=== PATIENT | female | born 1950 | race Caucasian/White ===

== ENCOUNTER → 2022-01-14 09:22 | Outpatient (CLI) | payer OTHER, SELFPAY ==
--- NOTE | ~2022-01-14 | CT_ITS ---
EXAMINATION: CT diagnostic chest wo con EXAM DATE: 01/14/2022 10:02 INDICATION: Restrictive lung disease. TECHNIQUE: Spiral CT of the chest without contrast. Axial, coronal and sagittal images of the chest were reviewed. Coronal maximum intensity pixel images of chest reviewed. The dose-length product ( DLP) for this examination was 340.20 mGy-cm. The exposure was tailored according to patient size (au to mA exposure control), and iterative reconstruction (ASIR) was used as additional dose reduction te [place]. There is no prior study for comparison. FINDINGS: Small left, trace right pleural effusions. Tracheobronchial tree is patent. Mild react noreen mediastinal lymphadenopathy. There is no pneumothorax. Severe cardiomegaly. Cardiac pacemaker/ AICD device. Extensive mosaic attenuation most likely groundglass opacity which can be caused acutely by edema, in fection (viral pneumonia or PCP in immunocompromised patients), or hemorrhage. It can also be caused by chronic processes such as hypersensitivity pneumonitis, nonspecific interstitial pneumonitis (NSI P), cryptogenic organized pneumonia, desquamative interstitial pneumonitis(DIP). Within this airspace disease there is superimposed solid nodular density left lower lobe on image 71, could be granuloma, infectious, postinfectious although cancer not excludable, and for which a follo w-up CT in 3-6 months is recommended. There are sternotomy wires, and cardiac/coronary surgical shukla es. Correlate with prior history. Dense aortic valve calcifications raising possibility of aortic jenaro nosis. Upper abdomen is unremarkable. There is thoracic spondylosis without osteoblastic or osteoly tic lesions identified. IMPRESSION: 1. Cardiomegaly. Aortic valve calcifications which can be seen with aortic stenosis. 2. Extensive mosaic attenuation could be edema in setting of CHF. Please clinically correlate. Some other differential considerations above. 3. Left lower lobe 1 cm lung nodule; recommend 3-six-month follow-up noncontrast chest CT. Reviewed, dictated and finalized at location A. IMPRESSION: 1. Cardiomegaly. Aortic valve calcifications which can be seen with aortic jenaro nosis. 2. Extensive mosaic attenuation could be edema in setting of CHF. Please clini mena correlate. Some other differential considerations above. 3. Left lower lobe 1 cm lung nodule; recommend 3-six-month follow-up noncontra st chest CT.
== END ==
DX: M47.814 Spondylosis without myelopathy or radiculopathy, thoracic region (principal); J98.4 Other disorders of lung; M40.209 Unspecified kyphosis, site unspecified; I51.7 Cardiomegaly; R91.1 Solitary pulmonary nodule; I70.0 Atherosclerosis of aorta; Z95.0 Presence of cardiac pacemaker
CPT/HCPCS: 71250

== ENCOUNTER → 2022-01-31 09:54 | Outpatient (CLI) | payer OTHER, SELFPAY ==
--- NOTE | ~2022-01-31 | XR_ITS ---
EXAMINATION: XR knee LT min 4V DATE: 01/31/2022 11:20 INDICATION: Acute left knee pain. TECHNIQUE: 4 views of left knee including standing views were obtained. COMPARISON: None. FINDINGS: There is a total left knee arthroplasty with patellar resurfacing in near-anatomic alignmen t. No fracture. No periprosthetic lucency to suggest loosening or infection. There is no knee joint e ffusion. IMPRESSION: 1. Total left knee arthroplasty in near-anatomic alignment. Reviewed, dictated and finalized at location B.
== END ==
DX: M25.562 Pain in left knee (principal)
CPT/HCPCS: 73564

== ENCOUNTER 2022-02-17 19:12 | Emergency (ER) | payer OTHER, SELFPAY ==
[2022-02-17 19:21] VITALS: BP 93/42; PULSE 85; RESP 18; TEMP 36.1; O2SAT 99
[2022-02-17 19:40] LABS: Basophils Absolute Auto 0.1 K/mm3 (0.0-0.1); Basophils Percent Auto 0.8 % (0.2-1.2); Eosinophils Percent Auto 0.4 % (0-4.4); Hematocrit 34.2 % (37.0-47.0); Hemoglobin 8.8 g/dL (12.0-15.0); Immature Granulocyte Absolute 0.08 K/mm3 (0.00-0.031); Lymphocytes Absolute Auto 0.37 K/mm3 (0.9-3.2); Lymphocytes Percent Auto 4.8 % (18.3-44.2); Mean Corpuscular HGB Conc 25.7 g/dl (32-36); Mean Corpuscular Hemoglobin 19.5 pg (26-34); Mean Corpuscular Volume 75.8 fl (80-100); Mean Platelet Volume 9.3 fl (7.4-10.4); Monocytes Absolute Auto 0.6 K/mm3 (0.1-0.6); Monocytes Percent Auto 8.2 % (2.6-8.5); Neutrophils Absolute Auto 6.5 K/mm3 (1.3-6.7); Neutrophils Percent Auto 84.8 % (45.5-73.1); Nucleated Red Blood Cells Absolute Auto 0.1 K/mm3 (0.0-0.012); Platelet Count Result 292 k/mm3 (150-375); Red Blood Count 4.51 M/mm3 (4.2-5.4); Red Cell Distribution Width 21.6 % (11.5-14.5); White Blood Count 7.6 K/mm3 (4.5-10.0)
[2022-02-17 19:52] LABS: Alanine Aminotransferase 28 U/L (6-35); Albumin Level 3.2 g/dL (3.5-5.1); Alkaline Phosphatase 194 U/L (38-126); Anion Gap 10 mmol/L (8-16); Aspartate Amino Transferase 45 U/L (14-36); Bilirubin,Total 1.6 mg/dL (0.2-1.3); Blood Urea Nitrogen 61 mg/dL (7-17); Calcium 10.7 mg/dL (8.4-10.2); Carbon Dioxide 24 mmol/L (22-30); Chloride 97 mmol/L (98-107); Estimated CRCL calculation 27 ml/min; Estimated Glomerular Filt Rate 30; Glucose 220 mg/dL (65-110); Potassium 3.8 mmol/L (3.4-5.0); Sodium 131 mmol/L (137-145)
[2022-02-17 20:07] LABS: Platelet Estimate Adequate (Adequate)
[2022-02-17 20:08] LABS: Anisocytosis 3+ (NORMAL); Hypochromasia 1+ (NORMAL)
[2022-02-17 21:13] LABS: Prothrombin Time 50.8 Seconds (11.1-14.7)
[2022-02-17 21:17] LABS: INR 5.8
[2022-02-17 22:04] VITALS: BP 105/60; PULSE 84; RESP 17; O2SAT 98
--- NOTE | 2022-02-17 23:25 | ED.GENADULT ---
HPI - General Adult General Chief complaint: Recheck/Abnormal Lab/Rx Stated complaint: elevated INR Time Seen by Provider: 02/17/22 22:57 Source: patient, family and RN notes reviewed Mode of arrival: ambulatory History of Present Illness HPI narrative: 9-year-old female presented the emergency department for a recheck of her Coumadin level. Patient's INR was 9.8 earlier by an outside lab and patient was instructed to present to the emergency department for treatment. Upon arrival and on recheck it was down to 5.8. Patient denies any active bleeding. Patient denies any other complaints. Related Data Home Medications Medication Instructions Recorded Confirmed acetaminophen-codeine tablet 02/17/22 albuterol sulfate INHALATION 02/17/22 alendronate mg PO 02/17/22 aripiprazole mg 02/17/22 atorvastatin 02/17/22 carvedilol 02/17/22 dofetilide mcg 02/17/22 doxycycline hyclate 02/17/22 escitalopram oxalate mg 02/17/22 ferrous sulfate mg 02/17/22 fluoxetine mg 02/17/22 nortriptyline 02/17/22 omeprazole 02/17/22 torsemide mg 02/17/22 trazodone 02/17/22 warfarin 02/17/22 02/17/22 Allergies Allergy/AdvReac Type Severity Reaction Status Date / Time ciprofloxacin [From Cipro] Allergy Unknown Verified 02/17/22 22:06 enalaprilat [From Vasotec] Allergy Cough Verified 02/17/22 22:06 Review of Systems Review of Systems: CONSTITUTIONAL: Denies fever, chills, or sweats. EYES: Denies visual changes, redness, or discharge. ENT: Denies rhinorrhea, congestion, sore throat, or otalgia. CARDIOVASCULAR: Denies chest pain, palpitations, or edema. RESPIRATORY: Denies cough or dyspnea. GASTROINTESTINAL: Denies abdominal pain, nausea, vomiting, or diarrhea. GENITOURINARY: Denies dysuria or hematuria. SKIN: Denies rash or itching. MUSCULOSKELETAL: Denies back pain, joint pain, or myalgia. NEUROLOGIC: Denies headache, numbness, or weakness. PSYCHIATRIC: Denies anxiety or depression. All systems reviewed & are unremarkable except as noted in HPI and below Exam Narrative: APPEARANCE: Well appearing, no pain, no distress, well-nourished. HEAD: normocephalic, atraumatic. EYES: PERRLA/EOMI, conjunctivae clear. NOSE: Normal no drainage THROAT: Pharynx clear, no exudate. NECK: Supple. No adenopathy, no masses. RESPIRATORY: Airway patent, respirations nonlabored. Clear to auscultation bilaterally, no rales, rhonchi, wheezing. CARDIOVASCULAR: Regular rate and rhythm without murmurs rubs or gallops. ABDOMINAL: Soft, nontender, nondistended, normal bowel sounds MUSCULOSKELETAL: Moves all extremities. Strength/ROM intact, No edema, No calf tenderness. NEURO: Alert. Cranial nerves II through XII intact. Good gait. Good coordination SKIN: Warm, dry. Normal Color Course Course Emergency Course: Patient and family were updated on the results of the INR. Patient has no active bleeding. Patient was advised to hold her Coumadin in the morning and to call her primary care physician for further advice for holding her Coumadin. Patient was also advised on reasons to return to the emergency department. All questions and concerns were addressed. Vital Signs Vital signs: Vital Signs Temperature 97.0 F L 02/17/22 19:21 Pulse Rate 85 02/17/22 19:21 Respiratory Rate 18 02/17/22 19:21 Blood Pressure 93/42 L 02/17/22 19:21 Pulse Oximetry 99 02/17/22 19:21 Temperature 97.0 F L 02/17/22 19:21 Pulse Rate 84 02/17/22 22:04 Respiratory Rate 17 02/17/22 22:04 Blood Pressure 105/60 02/17/22 22:04 Pulse Oximetry 98 02/17/22 22:04 Medical Decision Making Vital Signs Vital Signs: Vital Signs Temperature 97.0 F L 02/17/22 19:21 Pulse Rate 85 02/17/22 19:21 Respiratory Rate 18 02/17/22 19:21 Blood Pressure 93/42 L 02/17/22 19:21 Pulse Oximetry 99 02/17/22 19:21 Temperature 97.0 F L 02/17/22 19:21 Pulse Rate 84 02/17/22 22:04 Respiratory Rate 17 02/17/22 22:04 Blood Pressure 105/60 05/
== END 2022-02-18 03:32 | disposition home or self-care (01) ==
PROVIDERS: Emergency Provider Emergency Medicine; PCP Student in an Organized Health Care Education/Training Program
DX: R79.1 Abnormal coagulation profile (principal); Z79.01 Long term (current) use of anticoagulants
CPT/HCPCS: 36415; 80053; 85025; 85610; 99283

== ENCOUNTER 2022-02-25 02:25 | Emergency (ER) | payer OTHER, SELFPAY ==
--- NOTE | ~2022-02-25 | XR_ITS ---
EXAMINATION: XR knee LT min 4V DATE: 02/25/2022 04:18 INDICATION: Abrasions at the left knee post fall TECHNIQUE: Anteroposterior, 2 oblique and crosstable lateral views of the left knee were obtained COMPARISON: 01/31/2022 FINDINGS: Left total knee arthroplasty with patellar resurfacing which appears well seated in near-anatomic ali gnment. No periprosthetic lucency to suggest loosening. No fracture. No left knee joint effusion. Sma ll amount of atherosclerotic calcific location along the popliteal artery. Soft tissues are otherwise unremarkable with no other radiopaque foreign bodies. IMPRESSION: 1. Expected appearance of a left total knee arthroplasty. No acute osseous abnormality or radiopaque foreign bodies. Reviewed, dictated and finalized at location A. IMPRESSION: 1. Expected appearance of a left total knee arthroplasty. No acute osseous abno rmality or radiopaque foreign bodies.
--- NOTE | ~2022-02-25 | XR_ITS ---
EXAMINATION: XR shoulder LT min 2V DATE: 02/25/2022 04:18 INDICATION: Left shoulder pain post fall TECHNIQUE: AP internally and externally rotated, AP oblique externally rotated and transscapular Y vi ews of the left shoulder were obtained. COMPARISON: None FINDINGS: Normal alignment. No fracture. Glenohumeral and acromioclavicular joint spaces are normal. Cardiac p acemaker with 3 leads projecting over the left upper chest. There are a couple linear lucencies proje cting across one of the cardiac catheter leads present concern for possible discontinuity. Soft tissu es are unremarkable. IMPRESSION: 1. No acute osseous abnormality at the left shoulder. 2. Suggestion of a possible discontinuity of one of the leads of a 3-lead cardiac pacemaker either of the lead or surrounding insulation. Dr. Concepcion discussed these findings with Dr. Hinds at 7:27 AM . Reviewed, dictated and finalized at location A. IMPRESSION: 1. No acute osseous abnormality at the left shoulder. 2. Suggestion of a possible discontinuity of one of the leads of a 3-lead cardi ac pacemaker either of the lead or surrounding insulation. Dr. Concepcion discuss ed these findings with Dr. Hinds at 7:27 AM.
--- NOTE | ~2022-02-25 | XR_ITS ---
EXAMINATION: XR foot RT min 3V DATE: 02/25/2022 04:18 INDICATION: Right foot pain and bruising post fall TECHNIQUE: Dorsoplantar, two oblique and lateral views of the right foot were obtained. COMPARISON: None. FINDINGS: Diffuse osteopenia. No traumatic malalignment or fracture. Polyarticular osteoarthritis, moderate sev erity at a few of the joints in the midfoot and a few of the distal interphalangeal joints and mild a t many of the remaining joints in the right foot and ankle. Small Achilles and plantar calcaneal enth esophytes. Additional dorsal enthesophytes at a few of the tarsal bones. Mild soft tissue swelling ov er the dorsum of the forefoot. IMPRESSION: 1. Mild to moderate polyarticular osteoarthritis. No acute osseous abnormality. Reviewed, dictated and finalized at location A.
--- NOTE | ~2022-02-25 | CT_ITS ---
EXAMINATION: CT brain wo con DATE: 02/25/2022 04:05 INDICATION: Confusion. TECHNIQUE: Computed tomography (CT) of the head was performed without intravenous contrast. The mA wa s adjusted according to patient size. Iterative reconstruction technique was employed. The dose-lengt h product was 605.33 mGy-cm. COMPARISON: None FINDINGS: There are old infarcts in the cerebellum bilaterally. There are old infarcts involving the left frontal, parietal, and occipital lobes. There are old infarcts involving the right frontal, vivek etal, and occipital lobes. There are old infarcts involving the bilateral basal ganglia and thalami. There are scattered areas of low attenuation in the cerebral white matter, likely chronic small vesse l ischemic disease. There is no intracranial hemorrhage, acute infarction, or abnormal intracranial m ass lesion. The ventricles are normal in size. There are likely changes of ocular lens replacement johnson rgeries. The paranasal sinuses are clear. There are small bilateral mastoid effusions. IMPRESSION: 1. Multiple old infarcts in the brain. Reviewed, dictated and finalized at location B.
--- NOTE | ~2022-02-25 | XR_ITS ---
EXAMINATION: XR chest 1V portable DATE: 02/25/2022 04:18 INDICATION: Confusion TECHNIQUE: frontal view of the chest was obtained. COMPARISON: Chest CT dated 01/14/2022 FINDINGS: Cardiomegaly with pulmonary vascular congestion and perihilar opacities which could represent pulmona ry edema or pneumonia. Unchanged left paracardial fat pad and associated lingular atelectasis along t he lateral left lower hemithorax. No pleural effusion or pneumothorax. Median sternotomy wires, ostia l markers and mediastinal surgical clips consistent with prior coronary artery bypass grafting. Three lead pacemaker/AICD seen with leads projecting over the expected locations of the right atrial appen dage, apex of the right ventricle and overlying the left ventricle likely having traversed the guevara ry sinus. Surgical clips at the right axilla. IMPRESSION: 1. Bilateral perihilar predominant opacities and favor congestive heart failure related pulmonary shanna ma over pneumonia. 2. Cardiomegaly. Reviewed, dictated and finalized at location A. IMPRESSION: 1. Bilateral perihilar predominant opacities and favor congestive heart failure related pulmonary edema over pneumonia. 2. Cardiomegaly.
[2022-02-25 02:25] VITALS: BP 104/73; PULSE 80; RESP 20; TEMP 35.9; O2SAT 100
[2022-02-25 03:31] VITALS: O2SAT 100
--- NOTE | 2022-02-25 03:32 | PC.NURSE ---
Pt originally told this RN that she is on home O2 at all times but family says reports that she is not. Pt taken off O2 and is now 100% on room air.
--- NOTE | 2022-02-25 03:39 | ECG_ITS ---
Measurements Intervals [place] Rate: 89 P: 240 MO: 92 QRS: 186 QRSD: 227 T: 29 QT: 505 QTc: 618 Interpretive Statements ELECTRONIC VENTRICULAR PACEMAKER NO FURTHER INTERPRETATION IS POSSIBLE ATYPICAL ECG Electronically Signed On 02-25-2022 6:42:30 CDT by Henok Gibbs D.O.
--- NOTE | 2022-02-25 04:17 | PC.NURSE ---
Pt in radiology at this time.
[2022-02-25 04:32] LABS: Basophils Percent Auto 0.1 % (0.2-1.2); Eosinophils Percent Auto 0.2 % (0-4.4); Hematocrit 31.2 % (37.0-47.0); Hemoglobin 8.6 g/dL (12.0-15.0); Immature Granulocyte Percent A 0.8 % (0-0.5); Lymphocytes Absolute Auto 0.35 K/mm3 (0.9-3.2); Lymphocytes Percent Auto 2.8 % (18.3-44.2); Mean Corpuscular HGB Conc 27.6 g/dl (32-36); Mean Corpuscular Hemoglobin 19.9 pg (26-34); Mean Corpuscular Volume 72.2 fl (80-100); Mean Platelet Volume 10.1 fl (7.4-10.4); Neutrophils Absolute Auto 11.1 K/mm3 (1.3-6.7); Neutrophils Percent Auto 88.1 % (45.5-73.1); Nucleated Red Blood Cells Absolute Auto 0.1 K/mm3 (0.0-0.012); Nucleated Red Blood Cells Perc 0.4 % (0.0-0.2); Platelet Count Result 185 k/mm3 (150-375); Red Blood Count 4.32 M/mm3 (4.2-5.4); Red Cell Distribution Width 21.4 % (11.5-14.5); White Blood Count 12.6 K/mm3 (4.5-10.0)
[2022-02-25 04:43] LABS: INR 2.1; Prothrombin Time 22.4 Seconds (11.1-14.7)
[2022-02-25 04:44] LABS: Alanine Aminotransferase 40 U/L (6-35); Albumin Level 2.9 g/dL (3.5-5.1); Alkaline Phosphatase 240 U/L (38-126); Anion Gap 6 mmol/L (8-16); Aspartate Amino Transferase 80 U/L (14-36); Bilirubin,Total 2.5 mg/dL (0.2-1.3); Blood Urea Nitrogen 72 mg/dL (7-17); Carbon Dioxide 26 mmol/L (22-30); Chloride 97 mmol/L (98-107); Estimated CRCL calculation 27 ml/min; Estimated Glomerular Filt Rate 30; Glucose 105 mg/dL (65-110); Partial Thromboplastin Time 37.2 SECONDS (22.3-36.8); Sodium 129 mmol/L (137-145)
[2022-02-25 04:53] LABS: Appearance Urine Clear (Clear); Bilirubin Urine Negative (Negative); Blood Urine Negative (Negative); Color Urine Yellow (Yellow); Glucose Urine UA Negative (Negative); Ketones Urine Negative (Negative); Leukocyte Esterase Ur Negative LEU/UL (Negative); Nitrate Urine Negative (Negative); Protein Urine Negative (Negative); Urobilinogen Urine 0.2 mg/dL (<2.0)
[2022-02-25 04:58] LABS: Add Urine Microscopic? NO
[2022-02-25 06:18] VITALS: BP 107/72; PULSE 92; RESP 16; O2SAT 98
--- NOTE | 2022-02-25 06:31 | ED.FALL ---
HPI - Fall General Chief Complaint: Fall Stated Complaint: glf and increased weakness Time Seen by Provider: 02/25/22 03:14 Source: patient and family Mode of arrival: EMS Limitations: dementia History of Present Illness HPI Narrative: This is a 72 year old female with history CHF, hypertension, dementia who presents for evaluation of ground level fall and confusion. Patient lives with her family. They state patient got up to use the restroom. They were trying to get patient to get off the toilet but she would not walk. Patient was lowered down to the ground. She denies hitting her head or LOC. Her family states this happens every 3 days around this time. They wonder if patient has UTI because she is a little more confused than usual. PAtient is oriented to person and place. She denies chest pain, shortness of breath, abdominal pain, headache, nausea or vomiting. Family states patient was taking over coumadin 2 weeks ago due to coagulopathy. She is due to see new diamond broker this week. Family also noticed redness to left lower leg that started yesterday. Related Data Home Medications Medication Instructions Recorded Confirmed acetaminophen-codeine tablet 02/17/22 albuterol sulfate INHALATION 02/17/22 alendronate mg PO 02/17/22 aripiprazole mg 02/17/22 atorvastatin 02/17/22 carvedilol 02/17/22 dofetilide mcg 02/17/22 doxycycline hyclate 02/17/22 escitalopram oxalate mg 02/17/22 ferrous sulfate mg 02/17/22 fluoxetine mg 02/17/22 nortriptyline 02/17/22 omeprazole 02/17/22 torsemide mg 02/17/22 trazodone 02/17/22 warfarin 02/17/22 02/17/22 Allergies Allergy/AdvReac Type Severity Reaction Status Date / Time ciprofloxacin [From Cipro] Allergy Unknown Verified 02/25/22 02:53 enalaprilat [From Vasotec] Allergy Cough Verified 02/25/22 02:53 Review of Systems Review of Systems: All systems reviewed & are unremarkable except as noted in HPI and below PMFSH Past Medical History Medical History (Updated 02/25/22 @ 07:30 by Pallavi Hinds MD) Anemia CHF (congestive heart failure) Chronic anticoagulation Chronic kidney disease Hyperlipidemia Pacemaker Surgical History Surgical History (Updated 02/25/22 @ 07:30 by Pallavi Hinds MD) Heart valve replaced Social History Social History (Updated 02/25/22 @ 07:30 by Pallavi Hinds MD) Smoking status: Never smoker Exam Const: General: no acute distress, alert and ill appearing chronically Orientation/consciousness: patient oriented x3 HENMT: Head: normocephalic and atraumatic Mouth: Yes Normal oral and palatal mucosa present, Yes lip normal, Yes tongue normal, Yes oropharynx normal and Yes moist mucous membranes Throat: posterior oropharynx normal, tonsils normal and uvula midline Eyes: EOM: EOMs intact bilaterally Resp: Effort & Inspection: normal respiratory effort and no retractions Auscultation: clear to auscultation bilaterally Cardio: Rate: regular rate Rhythm: regular rhythm Heart sounds: Murmur heart sound present GI: GI Palp: Yes Soft to palpation, No Tenderness to palpation present (GI) and No Guarding due to palpation present (GI) Auscultation: normal bowel sounds Skin: Other: bruising to left axilla; left anterior lower leg celllulitis. Neuro: General: patient oriented x3, moves all extremities and no meningeal signs Extrem: General: edema bilateral (lower extremity pitting) Psych: Mental Status: mental status grossly normal Affect: normal affect Course Reevaluation(s) Reevaluation #1: I have reviewed with family labs. She has sodium 129, with GFR 30 Cr. 1.7, hemoglobin 8.6 that are stable from last ED visit. Chest xray shows cardiomegaly with congestion. Patient denies chest pain or shortness of breath and she is not hypoxic. I offered admission to patient and family given patient frequent falls. They do not want patient admitted. Patient does have left leg cellulitis so will sta
--- NOTE | 2022-02-25 07:21 | PC.NURSE ---
Assumed care of pt from Jose, Pt laying in bed with family at bedside
[2022-02-25] MEDS: CEPHALEXIN 500 MG CAPSULE PO (07:54)
[2022-02-25 07:55] VITALS: BP 105/63
== END 2022-02-25 07:57 | disposition home or self-care (01) ==
PROVIDERS: Emergency Provider General Practice; PCP Student in an Organized Health Care Education/Training Program
DX: L03.116 Cellulitis of left lower limb (principal); I13.0 Hypertensive heart and chronic kidney disease with heart failure and stage 1 through stage 4 chronic kidney disease, or unspecified chronic kidney disease; I50.9 Heart failure, unspecified; E87.1 Hypo-osmolality and hyponatremia; N18.9 Chronic kidney disease, unspecified; E78.5 Hyperlipidemia, unspecified; Z79.01 Long term (current) use of anticoagulants
CPT/HCPCS: 36415; 51701; 70450; 71045; 73030; 73564; 73630; 80053; 81003; 85025; 85610; 85730; 93005; 99284; A9270